=== PATIENT | female | born 1960 | race Caucasian/White ===

== ENCOUNTER 2024-12-27 17:32 | Emergency (ER) | payer MEDICARE, SELFPAY ==
[~2024-12-27] VITALS: Ht 165.1 cm; Wt 72.7 kg
[~2024-12-27 17:32] MED LIST: ADV50100 IH; COMIN IH; NO HOME MEDS; PRED10TA PO
[2024-12-27 18:04] VITALS: BP 161/91; PULSE 91; RESP 16; O2SAT 96
[2024-12-27 18:41] VITALS: TEMP 98.6
== END 2024-12-27 18:42 | disposition home or self-care (01) ==
LOC: ER 17:33
DX: Z02.89 Encounter for other administrative examinations (principal)
CPT/HCPCS: 99283